=== PATIENT | female | born 1985 | race American Indian/Alaskan Native ===

== ENCOUNTER 2017-08-31 20:05 | Emergency (ER) | payer SELFPAY ==
[2017-08-31 20:48] LABS: Hematocrit 40.8 % (30.3-42.9); Hemoglobin 13.4 gm/dl (10.1-14.3); Mean Corpuscular HGB Conc 33 % (30-34); Mean Corpuscular Hemoglobin 27 pg (28-32); Mean Corpuscular Volume 82 fl (79-97); Platelet Count 349 K/mm3 (140-440); Red Blood Count 4.96 M/mm3 (3.65-5.03)
[2017-08-31 21:23] LABS: Bacteria,Urine 1+ /HPF (Negative); Bilirubin,Urine NEG (Negative); Blood,Urine LG (Negative); Color,Urine Red (Yellow); Mucus,Urine 2+ /HPF
[2017-08-31 21:28] LABS: Basophils % (Manual) 0 % (0.0-1.8); Total Cells Counted 100
[2017-08-31 21:29] LABS: Anisocytosis 1+; Poikilocytosis Few
[2017-08-31 21:32] LABS: RBC,Urine > 182.0 /HPF (0.0-6.0)
--- NOTE | 2017-09-01 01:10 | Ultrasound Report ---
FINAL REPORT PROCEDURE: US OB TECHNIQUE: Real-time transabdominal sonography in multiple planes of the pelvis was performed. The pelvic structures, especially the ovaries were not optimally visualized. Transvaginal sonography was then performed to better evaluate the structures and/or abnormalities described below with image documentation. Limited Doppler evaluation. CPT 55213 and 06324 HISTORY: Vaginal bleeding. COMPARISON: No prior studies are available for comparison. FINDINGS: UTERUS Size: 9.5 x 3.5 x 3.8 cm. Endometrial thickness: 12.1 mm. 12 x 4 x 9 mm cystic structure in the lower uterine segment. Orientation: anteverted. Cervix: Normal. Fibroids/masses: None. RIGHT Ovary: 2.7 x 1.9 x 2.9 cm. Appearance: 1.3 cm solid lesion in the right ovary. Normal flow. LEFT Ovary: 2.3 x 1.6 x 2 cm. Appearance: Normal flow. Pelvic fluid: None. Other: None. IMPRESSION: Endometrium slightly thickened. No sonographic evidence of intrauterine . Cystic structure in the lower uterine segment, of uncertain etiology. Consider nabothian cysts. However, cannot exclude that this could be related to a positive HCG such as missed/threatened AB or developing gestational sac in the low position and/or small amount of hemorrhage/clot, and although right ovarian lesion may represent complex cyst, cannot completely completely exclude this is an ectopic. Recommend clinical correlation, correlation with beta HCG, and short-term followup pelvic ultrasound.
--- NOTE | 2017-09-01 01:21 | Ultrasound Report ---
FINAL REPORT PROCEDURE: US OB TECHNIQUE: Real-time transabdominal sonography in multiple planes of the pelvis was performed. The pelvic structures, especially the ovaries were not optimally visualized. Transvaginal sonography was then performed to better evaluate the structures and/or abnormalities described below with image documentation. Limited Doppler evaluation. CPT 23025 and 53456 HISTORY: Vaginal bleeding. COMPARISON: No prior studies are available for comparison. FINDINGS: UTERUS Size: 9.5 x 3.5 x 3.8 cm. Endometrial thickness: 12.1 mm. 12 x 4 x 9 mm cystic structure in the lower uterine segment. Orientation: anteverted. Cervix: Normal. Fibroids/masses: None. RIGHT Ovary: 2.7 x 1.9 x 2.9 cm. Appearance: 1.3 cm solid lesion in the right ovary. Normal flow. LEFT Ovary: 2.3 x 1.6 x 2 cm. Appearance: Normal flow. Pelvic fluid: None. Other: None. IMPRESSION: Endometrium slightly thickened. No sonographic evidence of intrauterine . Cystic structure in the lower uterine segment, of uncertain etiology. Consider nabothian cysts. However, cannot exclude that this could be related to a positive HCG such as missed/threatened AB or developing gestational sac in the low position and/or small amount of hemorrhage/clot, and although right ovarian lesion may represent complex cyst, cannot completely completely exclude this is an ectopic. Recommend clinical correlation, correlation with beta HCG, and short-term followup pelvic ultrasound.
[2017-09-01] MEDS ORDERED: NORCO 5/325 PO ONE (04:48)
[2017-09-01 06:34] VITALS: BP 119/71
--- NOTE | 2017-09-01 07:10 | Emergency Department Report ---
ED General Adult HPI - General Chief complaint: Vaginal Bleeding Stated complaint: VAGINAL BLEEDING,CRAMPING Time Seen by Provider: 09/01/17 06:18 Source: patient Mode of arrival: Ambulatory Limitations: No Limitations - History of Present Illness Initial comments: This is a 31-year-old female that the nurse states passed a clot while in the emergency department but otherwise feels like she is ready to go home. She states she has been here all night. She's had no active bleeding. She does not complain of any active pain but says she has had some cramping. She did a home test which was positive about a month ago. She has not visited a weapons system instrument mechanic. She is 3 para 2. She states her blood type is O+. She has never received Rh vaccine. -: Gradual, hour(s) Radiation: abdomen (some lower abdominal discomfort) Quality: other (cramping) Consistency: intermittent Improves with: none Worsens with: none Associated Symptoms: denies other symptoms Treatments Prior to Arrival: none - Related Data Previous Rx's Medication Instructions Recorded Last Taken Type Cefuroxime [Ceftin] 250 mg PO Q12H #14 tablet 09/01/17 Unknown Rx HYDROcodone/APAP 5-325 [[place] 1 each PO Q6HR PRN #7 tablet 09/01/17 Unknown Rx 5/325] Allergies Allergy/AdvReac Type Severity Reaction Status Date / Time No Known Allergies Allergy Unverified 08/31/17 20:30 ED Review of Systems ROS: Stated complaint: VAGINAL BLEEDING,CRAMPING Other details as noted in HPI Constitutional: denies: chills, fever Eyes: denies: eye pain, eye discharge, vision change ENT: denies: ear pain, throat pain Respiratory: denies: cough, shortness of breath, wheezing Cardiovascular: denies: chest pain, palpitations Endocrine: no symptoms reported Gastrointestinal: denies: abdominal pain, nausea, diarrhea Genitourinary: as per HPI, abnormal menses. denies: urgency, dysuria, frequency , hematuria, discharge Musculoskeletal: denies: back pain, joint swelling, arthralgia Skin: denies: rash, lesions Neurological: denies: headache, weakness, paresthesias Psychiatric: denies: anxiety, depression Hematological/Lymphatic: denies: easy bleeding, easy bruising ED Past Medical Hx - Past Medical History Previous Medical History?: No - Surgical History Past Surgical History?: Yes Additional Surgical History: c section - Social History Smoking Status: Never Smoker Substance Use Type: None - Medications Home Medications: Home Medications Medication Instructions Recorded Confirmed Last Taken Type Cefuroxime [Ceftin] 250 mg PO Q12H #14 tablet 09/01/17 Unknown Rx HYDROcodone/APAP 5-325 [[place] 1 each PO Q6HR PRN #7 tablet 09/01/17 Unknown Rx 5/325] ED Physical Exam - General Limitations: No Limitations General appearance: alert, in no apparent distress - Head Head exam: Present: atraumatic, normocephalic - Eye Eye exam: Present: normal appearance - ENT ENT exam: Present: mucous membranes moist - Neck Neck exam: Present: normal inspection - Respiratory Respiratory exam: Present: normal lung sounds bilaterally. Absent: respiratory distress - Cardiovascular Cardiovascular Exam: Present: regular rate, normal rhythm. Absent: systolic murmur, diastolic murmur, rubs, gallop - GI/Abdominal GI/Abdominal exam: Present: soft, normal bowel sounds. Absent: distended, tenderness, guarding, rebound, rigid - Extremities Exam Extremities exam: Present: normal inspection - Back Exam Back exam: Present: normal inspection - Neurological Exam Neurological exam: Present: alert, oriented X3, CN II-XII intact. Absent: motor sensory deficit - Psychiatric Psychiatric exam: Present: normal affect, normal mood - Skin Skin exam: Present: warm, dry, intact, normal color. Absent: rash ED Course Vital Signs 08/31/17 09/01/17 09/01/17 20:27 04:21 04:53 Temperature 99.0 F 98.4 F Pulse Rate 81 64 Respiratory 17 16 16 Rate Blood Pressure 130/84 Blood Pressure 145/84 [Left] O2 Sat by Pulse 100 98 Oximetry 09/01/17 09/01/17 05:30 06:33 Temperature 98.5 F Pulse Rate 64 Respiratory 16 16 Rate Blood Pressure Blood Pressure 119/71 [Left] O2 Sat by Pulse 100 Oximetry ED Medical Decision Making - Lab Data Result diagrams: 08/31/17 20:33 Laboratory Results - last 24 hr 08/31/17 08/31/17 08/31/17 20:33 20:33 20:33 WBC 14.5 H RBC 4.96 Hgb 13.4 Hct 40.8 MCV 82 MCH 27 L MCHC 33 RDW 14.0 Plt Count 349 Lymph # Cardiovascular Rn Add Manual Diff Complete Total Counted 100 Seg Neuts % (Manual) 42.0 Band Neutrophils % 0 Lymphocytes % (Manual) 53.0 H Reactive Lymphs % (Man) 0 Monocytes % (Manual) 4.0 Eosinophils % (Manual) 1.0 Basophils % (Manual) 0 Metamyelocytes % 0 Myelocytes % 0 Promyelocytes % 0 Blast Cells % 0 Nucleated RBC % Not Reportable Seg Neutrophils # Man 6.1 Band Neutrophils # 0.0 Lymphocytes # (Manual) 7.7 H Abs React Lymphs (Man) 0.0 Monocytes # (Manual) 0.6 Eosinophils # (Manual) 0.1 Basophils # (Manual) 0.0 Metamyelocytes # 0.0 Myelocytes # 0.0 Promyelocytes # 0.0 Blast Cells # 0.0 WBC Morphology Not Reportable Hypersegmented Neuts Not Reportable Hyposegmented Neuts Not Reportable Hypogranular Neuts Not Reportable Smudge Cells Not Reportable Toxic Granulation Not Reportable Toxic Vacuolation Not Reportable Dohle Bodies Not Reportable Pelger-Huet Anomaly Not Reportable Juapnablo Rods Not Reportable Platelet Estimate Appears normal Clumped Platelets Not Reportable Plt Clumps, EDTA Not Reportable Large Platelets Not Reportable Giant Platelets Not Reportable Platelet Satelliting Not Reportable Plt Morphology Comment Not Reportable RBC Morphology Not Reportable Dimorphic RBCs Not Reportable Polychromasia Not Reportable Hypochromasia Not Reportable Poikilocytosis Few Anisocytosis 1+ Microcytosis Not Reportable Macrocytosis Not Reportable Spherocytes Not Reportable Pappenheimer Bodies Not Reportable Sickle Cells Not Reportable Target Cells Not Reportable Tear Drop Cells Not Reportable Ovalocytes Not Reportable Helmet Cells Not Reportable [place] Bodies Not Reportable [place] Rings Not Reportable [place] Cells Not Reportable Bite Cells Not Reportable Crenated Cell Not Reportable Elliptocytes Not Reportable Acanthocytes (Spur) Not Reportable Rouleaux Not Reportable Hemoglobin C Crystals Not Reportable Schistocytes Not Reportable Malaria parasites Not Reportable Angel Bodies Not Reportable Hem Pathologist Commnt No HCG, Quant 472.4 H Urine Color Urine Turbidity Urine pH Ur Specific [place] Urine Protein Urine Glucose (UA) Urine Ketones Urine Blood Urine Nitrite Urine Bilirubin Urine Urobilinogen Ur Leukocyte Esterase Urine WBC (Auto) Urine RBC (Auto) U Epithel Cells (Auto) Urine Bacteria (Auto) Urine Mucus Blood Type B POSITIVE Antibody Screen Negative 08/31/17 Unknown WBC RBC Hgb Hct MCV MCH MCHC RDW Plt Count Lymph # Add Manual Diff Total Counted Seg Neuts % (Manual) Band Neutrophils % Lymphocytes % (Manual) Reactive Lymphs % (Man) Monocytes % (Manual) Eosinophils % (Manual) Basophils % (Manual) Metamyelocytes % Myelocytes % Promyelocytes % Blast Cells % Nucleated RBC % Seg Neutrophils # Man Band Neutrophils # Lymphocytes # (Manual) Abs React Lymphs (Man) Monocytes # (Manual) Eosinophils # (Manual) Basophils # (Manual) Metamyelocytes # Myelocytes # Promyelocytes # Blast Cells # WBC Morphology Hypersegmented Neuts Hyposegmented Neuts Hypogranular Neuts Smudge Cells Toxic Granulation Toxic Vacuolation Dohle Bodies Pelger-Huet Anomaly Juanpablo Rods Platelet Estimate Clumped Platelets Plt Clumps, EDTA Large Platelets Giant Platelets Platelet Satelliting Plt Morphology Comment RBC Morphology Dimorphic RBCs Polychromasia Hypochromasia Poikilocytosis Anisocytosis Microcytosis Macrocytosis Spherocytes Pappenheimer Bodies Sickle Cells Target Cells Tear Drop Cells Ovalocytes Helmet Cells [place] Bodies Mellott Rings Sandhya Cells Bite Cells Crenated Cell Elliptocytes Acanthocytes (Spur) Rouleaux Hemoglobin C Crystals Schistocytes Malaria parasites Angel Bodies Hem Pathologist Commnt HCG, Quant Urine Color Red Urine Turbidity Clear Urine pH 5.0 Ur Specific [place] 1.028 Urine Protein 100 mg/dl Urine Glucose (UA) Neg Urine Ketones Tr Urine Blood Lg Urine Nitrite Neg Urine Bilirubin Neg Urine Urobilinogen 2.0 Ur Leukocyte Esterase Mod Urine WBC (Auto) 96.0 H Urine RBC (Auto) > 182.0 U Epithel Cells (Auto) 3.0 Urine Bacteria (Auto) 1+ Urine Mucus 2+ Blood Type Antibody Screen - Radiology Data Radiology results: report reviewed (cyst in the lower uterine segment with broad differential diagnosis) Critical care attestation.: If time is entered above; I have spent that time in minutes in the direct care of this critically ill patient, excluding procedure time. ED Disposition Clinical Impression: Threatened miscarriage Urinary tract infection Qualifiers: Urinary tract infection type: site unspecified Hematuria presence: with hematuria Qualified Code(s): N39.0 - Urinary tract infection, site not specified ; R31.9 - Hematuria, unspecified Disposition: DC-01 TO HOME OR SELFCARE Is pt being admited?: No Does the pt Need Aspirin: No Condition: Stable Instructions: Threatened Miscarriage (ED), Urinary Tract Infection in Women (ED ) Additional Instructions: The ultrasound is too early to specifically determine the diagnosis. This frequently happens. Follow-up ultrasound will be necessary with the weapons system instrument mechanic. You do have a urinary tract infection and an antibiotic will be prescribed. In addition there is a urine culture that is used for and determining whether the antibiotics is effective. That takes 2 days to complete. See weapons system instrument mechanic within this timeframe. Rx as directed. Prescriptions: Cefuroxime [Ceftin] 250 mg PO Q12H #14 tablet HYDROcodone/APAP 5-325 [[place] 5/325] 1 each PO Q6HR PRN #7 tablet PRN Reason: Pain Referrals: LINSEY WATTS MD [Staff Physician] - 2-3 Days Time of Disposition: 07:09
== END 2017-09-01 07:50 | disposition home or self-care (01) ==
LOC: ED 20:05
DX: O20.0 Threatened abortion (principal); O23.41 Unspecified infection of urinary tract in pregnancy, first trimester; Z3A.01 Less than 8 weeks gestation of pregnancy
CPT/HCPCS: 36415; 76801; 76817; 81001; 84702; 85007; 85025; 86850; 86900; 86901; 87086; 99284

== ENCOUNTER 2019-01-22 21:35 | Outpatient (CLI) | payer MEDICAID ==
[2019-01-22 22:03] VITALS: BP 106/55
[2019-01-22] MEDS ORDERED: LACTATED RINGERS 500 ML IV ONE (22:32)
[2019-01-22 23:11] LABS: Bilirubin,Urine NEG (Negative); Blood,Urine NEG (Negative); Color,Urine Yellow (Yellow); Mucus,Urine FEW /HPF; Protein,Urine <15 mg/dL mg/dL (Negative); Urobilinogen,Urine < 2.0 mg/dL (<2.0); WBC,Urine < 1.0 /HPF (0.0-6.0)
--- NOTE | 2019-01-22 23:33 | Ultrasound Report ---
ULTRASOUND OBSTETRIC LIMITED ULTRASOUND BIOPHYSICAL PROFILE INDICATION / CLINICAL INFORMATION: POST FALL. COMPARISON: None available. FINDINGS: BREATHING MOVEMENT = 2 GROSS BODY MOVEMENT = 2 TONE = 2 QUALITATIVE AMNIOTIC FLUID VOLUME = 2 TOTAL BIOPHYSICAL SCORE = 8/8 AMNIOTIC FLUID INDEX (cm) = 8.1 PRESENTATION: Cephalic. HEART RATE (beats per minute): 156 ADDITIONAL FINDINGS: None. IMPRESSION: 1. Biophysical Score = 8/8 Signer Name: Garry Amor MD Signed: 01/22/2019 11:29 PM Workstation Name: [id number]
== END 2019-01-22 23:59 | disposition home or self-care (01) ==
LOC: TRG 21:35
PROVIDERS: ATTEND Obstetrics & Gynecology
DX: O47.03 False labor before 37 completed weeks of gestation, third trimester (principal); O26.893 Other specified pregnancy related conditions, third trimester; M54.9 Dorsalgia, unspecified; Z3A.36 36 weeks gestation of pregnancy; W01.0XXA Fall on same level from slipping, tripping and stumbling without subsequent striking against object, initial encounter; Y93.89 Activity, other specified; Y92.89 Other specified places as the place of occurrence of the external cause; Y99.8 Other external cause status
CPT/HCPCS: 59025; 76815; 76819; 81001; J7120

== ENCOUNTER 2019-02-03 18:13 | Inpatient (IN) | payer MEDICAID ==
[2019-02-03] MEDS ORDERED: LACTATED RINGERS 1,000 ML ONE (19:11)
[2019-02-03] MEDS ORDERED: REGLAN IV SCH (19:39)
[2019-02-03] MEDS ORDERED: BICITRA PO SCH (19:39)
[2019-02-03 19:53] LABS: Hematocrit 38.2 % (30.3-42.9); Hemoglobin 12.3 gm/dl (10.1-14.3); Mean Corpuscular HGB Conc 32 % (30-34); Mean Corpuscular Volume 82 fl (79-97); Platelet Count 355 K/mm3 (140-440); Red Blood Count 4.69 M/mm3 (3.65-5.03); Red Cell Distribution Width 14.5 % (13.2-15.2)
[2019-02-03] MEDS ORDERED: ANCEF/STERILE WATER 2 GM/20 ML 2 GM/20 ML SYRINGE IV NR (20:00)
[2019-02-03] MEDS ORDERED: PITOCin/NS 20 UNIT/1000ML DRIP 20 UNITS/1,000 ML BAG IV SCH ×2 (21:00→23:45)
[2019-02-03] MEDS ORDERED: PEPCID IV ONE (21:00)
[2019-02-03] MEDS ORDERED: LACTATED RINGERS 1,000 ML IV SCH (21:00)
[2019-02-03] MEDS ORDERED: PHENERGAN PO PRN (21:09)
[2019-02-03] MEDS ORDERED: NARCAN 0.4 MG/1 ML IV PRN ×2 (21:09→23:14)
[2019-02-03] MEDS ORDERED: ZOFRAN IV PRN ×2 (21:09→23:14)
[2019-02-03] MEDS ORDERED: PHENERGAN PR PRN (21:09)
[2019-02-03] MEDS ORDERED: DILAUDID IV PRN ×2 (21:09)
--- NOTE | 2019-02-03 21:09 | Anesthesia Day of Surgery ---
Anesthesia Day of Surgery - Day of Surgery Patient Examined: Yes Patient H&P Reviewed: Yes Patient is NPO: Yes
--- NOTE | 2019-02-03 21:09 | Anesthesia Consultation ---
Anesthesia Consult and Med Hx Date of service: 02/03/19 - Airway Anesthetic Teeth Evaluation: Good ROM Head & Neck: Adequate Mental/Hyoid Distance: Adequate Mallampati Class: Class II Intubation Access Assessment: Good - Pulmonary Exam CTA: Yes - Cardiac Exam Cardiac Exam: RRR - Pre-Operative Health Status ASA Pre-Surgery Classification: ASA2, Emergency Proposed Anesthetic Plan: Spinal - Pulmonary Hx Asthma: No - Cardiovascular System Hx Hypertension: No - Central Nervous System Hx Seizures: No Hx Psychiatric Problems: No - Endocrine Hx Renal Disease: No Hx Hypothyroidism: No Hx Hyperthyroidism: No - Hematic Hx Anemia: No Hx Sickle Cell Disease: No - Other Systems Hx Alcohol Use: No
--- NOTE | 2019-02-03 21:44 | History and Physical Report ---
History of Present Illness Date of examination: 02/03/19 Date of admission: 02/03/2019 Chief complaint: Term , Previous , having contractions. History of present illness: A2 at 38+1 wks, prior delivery and desiring repeat . Past History Past Medical History: no pertinent history - Obstetrical History : 5 Medications and Allergies Allergies Allergy/AdvReac Type Severity Reaction Status Date / Time No Known Allergies Allergy Verified 01/22/19 22:37 Home Medications Medication Instructions Recorded Confirmed Last Taken Type HYDROcodone/APAP 5-325 [[place] 1 each PO Q6HR PRN #7 tablet 09/01/17 Unknown Rx 5/325] cefUROXime [Ceftin] 250 mg PO Q12H #14 tablet 09/01/17 Unknown Rx Active Meds: Active Medications Citric Acid/Sodium Citrate (Bicitra) 30 ml PO ONCE ALECIA Stop: 02/04/19 19:38 Hydromorphone HCl (Dilaudid) 0.5 mg IV Q5M PRN PRN Reason: Breakthrough Pain Stop: 02/04/19 06:00 Hydromorphone HCl (Dilaudid) 0.5 mg IV Q4H PRN PRN Reason: breakthrough pain > 7/10 Cefazolin Sodium (Ancef/Sterile Water 2 Gm/20 Ml) 2 gm in 20 mls @ 80 mls/hr IV PREOP NR; Protocol Stop: 02/04/19 19:59 Oxytocin/Sodium Chloride (Pitocin/Ns 20 Unit/1000ml Drip) 20 units in 1,000 mls @ 0 mls/hr IV TITR ALECIA Lactated Ringer's (Lactated Ringers) 1,000 mls @ 2,250 mls/hr IV PREOP ALECIA Stop: 02/04/19 21:27 Metoclopramide HCl (Reglan) 10 mg IV ONCE ALECIA Stop: 02/04/19 19:38 Naloxone HCl (Narcan 0.4 Mg/1 Ml) 0.2 mg IV Q2MIN PRN PRN Reason: Res Rate </= 8 or 02 SAT < 92% Ondansetron HCl (Zofran) 4 mg IV Q8H PRN PRN Reason: Nausea And Vomiting Promethazine HCl (Phenergan) 25 mg PO Q6H PRN PRN Reason: Nausea And Vomiting Promethazine HCl (Phenergan) 25 mg TN Q6H PRN PRN Reason: Nausea And Vomiting Sodium Chloride (Sodium Chloride Flush Syringe 10 Ml) 10 ml IV PRN NR Stop: 02/04/19 23:59 Review of Systems All systems: negative - Vital Signs Vital signs: Vital Signs Temp Pulse Resp BP Pulse Ox 98.3 F 72 20 118/71 97 02/03/19 18:35 02/03/19 18:35 02/03/19 18:35 02/03/19 18:35 02/03/19 18:35 Temp Pulse Resp BP Pulse Ox 98.3 F 81 20 118/71 100 02/03/19 18:35 02/03/19 19:41 02/03/19 18:35 02/03/19 18:35 02/03/19 19:41 - Physical Exam Breasts: Positive: deferred Abdomen: Positive: distention. Negative: tenderness - Obstetrical FHR: category 1 Results Result Diagrams: 02/03/19 19:30 Abnormal lab results 02/03/19 Range/Units 19:30 WBC 13.7 H (4.5-11.0) K/mm3 MCH 26 L (28-32) pg All other labs normal. Assessment and Plan - Patient Problems (1) Term Current Visit: Yes Status: Acute (2) Previous delivery, antepartum Current Visit: Yes Status: Acute Plan to address problem: Term , prior in early labor. Desires repeat . Plan: all risks of repeat discussed in details, and patient asked questions which were all answered. She gave her consent for surgery and will be delivered shortly by section.
[2019-02-03 21:48] LABS: Band Neutrophils # (Manual) 0.3 K/mm3; Myelocytes # (Manual) 0.1 K/mm3; Total Cells Counted 100
[2019-02-03 21:49] LABS: Ovalocytes Few; Platelet Estimate Consistent w Auto
[2019-02-03] MEDS ORDERED: SODIUM CHLORIDE FLUSH SYRINGE 10 ML IV NR ×2 (22:00→23:45)
[2019-02-03] MEDS ORDERED: WATER FOR IRRIG STERILE IR ONE (22:09)
[2019-02-03] MEDS ORDERED: NACL 0.9% IR ONE (22:09)
[2019-02-03] MEDS ORDERED: DEXMEDETOMIDINE IV ONE (22:35)
[2019-02-03] MEDS ORDERED: ZOFRAN ONE (22:35)
[2019-02-03] MEDS ORDERED: BENADRYL ONE (22:35)
[2019-02-03] MEDS ORDERED: TORADOL ONE (22:35)
[2019-02-03] MEDS ORDERED: TYLENOL PO PRN (23:14)
[2019-02-03] MEDS ORDERED: LANSINOH TP PRN (23:14)
[2019-02-03] MEDS ORDERED: IBUPROFEN PO PRN (23:14)
[2019-02-03] MEDS ORDERED: TUCKS PAD TP PRN (23:14)
--- NOTE | 2019-02-03 23:22 | Post Anesthesia Evaluation ---
- Post Anesthesia Evaluation Patient Participated: Yes Airway Patent: Yes Stable Respiratory Function: Yes Nausea/Vomiting: Yes Temp > 96.8F: No Pain Manageable: Yes Adequeate Hydration: Yes Anesthesia Complications: No Block Receding Appropriately: Yes Patient on Ventilator: No
--- NOTE | 2019-02-03 23:27 | Operative Report ---
Operative Report Operative Report: Date of surgery: 02/03/2019 Preoperative diagnoses: Term , previous section, early labor Postoperative diagnoses: The same. Plus peritoneal adhesions. Operation: delivery plus lysis of adhesions Surgeon:Jessica Dickson MD Hotel Baggage Handler: Andrea Ta CRNA Anesthesia: Spinal block Estimated blood loss: 300 mL Complications: None Findings: Live baby girl, 5 lbs. 15 oz. Apgars 8/8 was in cephalic presentation. There were moderate peritoneal adhesions involving the greater omentum to the anterior parietal peritoneum. Both ovaries fallopian tubes as well as the uterus were all grossly normal. Procedure in detail: The patient was taken to the operating room and given a spinal block. Patient was placed in the straight supine position and a Bradshaw catheter was inserted. The patient was prepped in the abdomen. The drapes were placed. A timeout was done. With the go ahead from the office engineer, a Pfannenstiel incision was made. This incision was carried across the subcutaneous layer to the fascia which was also divided transversely. The recti abdominis muscle flaps were stripped from the fascia using a combination of blunt and sharp dissections. The muscles were in the midline to gain access to the anterior parietal peritoneum which was divided after excluding any underlying viscera. The access to the peritoneal cavity was then widened by manual stretching. The bladder blade was applied. The utero vesicle peritoneal flap was divided transversely allowing the bladder to be displaced caudally. The uterine incision was placed in the lower segment transversely. The uterine incision was carried to the decidual layer. The uterine incision was extended on both sides using the bandage scissors. The amniotic sac was ruptured with clear fluid. The head was lifted out of the falls maternal pelvis and delivered through the incision using fundal pressure. The airways were bulb suctioned beginning with the mouth. Continuing fundal pressure combined with traction on the mandibular processes of the jaw delivered the rest of the baby. The umbilical cord was double clamped and divided. The baby was carefully transferred to the pediatric team. The placenta was manually removed from the uterine cavity. The uterine cavity was explored and was empty of any placental remnants. The uterine incision was repaired in 2 layers with #1 Vicryl. The surgical line on the uterus was hemostatic. Blood and clots were cleared from the peritoneal cavity. The peritoneal adhesions described under the findings were then divided using a combination of blunt and sharp dissections as well as double clamping and d ividing and adherent segment of the greater omentum bound to the midportion of the anterior parietal peritoneum. A ragged segment of the greater omentum had to be excised to achieve hemostasis. This specimen was sent to histopathology. The anterior parietal peritoneum was repaired with #1 Vicryl. The fascia was repaired with #1 Vicryl. The subcutaneous layer was made hemostatic using the Bovie before the skin was closed subcuticularly with 4-0 Vicryl. There were no complications. The estimated blood loss was 300 mL. All sponges and instrument counts were correct. Patient was safely transferred to the recovery room
[2019-02-04] MEDS: TORADOL IV PRN ×3 (01:58→18:11)
[2019-02-04] MEDS: MORPHINE IV PRN ×3 (03:14→16:10)
[2019-02-04] MEDS: ANCEF/NS 1 GM/50 ML 1 GM/50 ML BAG IV SCH ×2 (03:16→11:31)
[2019-02-04] MEDS ORDERED: D5LR 1,000 ML IV SCH (06:00)
[2019-02-04] MEDS: PRENATAL VITAMIN PO SCH (10:15)
[2019-02-04] MEDS: FEOSOL PO SCH (10:15)
[2019-02-04 11:40] LABS: Hematocrit 31.1 % (30.3-42.9); Hemoglobin 9.9 gm/dl (10.1-14.3)
--- NOTE | 2019-02-04 13:07 | Progress Note ---
Assessment and Plan - Patient Problems (1) Term Current Visit: Yes Status: Acute (2) Previous delivery, antepartum Current Visit: Yes Status: Acute (3) Status post section Current Visit: Yes Status: Acute Plan to address problem: Doing well on present mgt. Subjective - Subjective Interval history: A2 at 38+1 wks, prior delivery and desiring repeat . Status post Day 1. Objective - Vital Signs Latest vital signs: Vital Signs Temp Pulse Resp BP BP Pulse Ox 02/04/19 09:16 97.8 F 84 18 109/50 99 02/04/19 03:14 16 02/04/19 00:52 98.0 F 74 16 128/78 128/78 100 02/04/19 00:25 98.1 F 81 20 109/63 99 02/04/19 00:15 75 20 116/68 99 02/04/19 00:00 78 18 118/69 99 02/03/19 23:45 81 18 117/69 99 02/03/19 23:30 90 14 118/68 99 02/03/19 23:25 95 H 19 104/68 100 02/03/19 23:22 97.5 F L 103 H 16 86/68 100 02/03/19 19:41 81 100 02/03/19 19:36 82 100 02/03/19 19:31 76 99 02/03/19 19:26 80 99 02/03/19 19:21 82 98 02/03/19 19:16 80 98 02/03/19 19:11 80 98 02/03/19 19:06 79 98 02/03/19 19:01 73 96 02/03/19 18:56 78 96 02/03/19 18:35 98.3 F 72 20 118/71 97 Intake and Output 02/03/19 02/04/19 02/04/19 23:59 07:59 15:59 Intake Total 1999 50 480 Output Total 200 2300 Balance 1800 50 -1820 Intake: IV 1999 50 ANCEF/NS 1 GM/50 ML 1 gm 50 In 50 ml @ 100 mls/hr IV Q8H [facility] Rx#:[id number] Oral 480 Output: Urine 200 2300 Indwelling Catheter 2300 Uretheral (Bradshaw) 100 Other: Total, Intake Amount 240 Total, Output Amount 600 Weight 73.936 kg Estimated Blood Loss 300 - Exam Narrative Exam: Ambulating very nicely. Breasts: Present: deferred Abdomen: Present: normal appearance (Incision dry.) - Labs Labs: Abnormal lab results 02/03/19 02/04/19 Range/Units 19:30 10:54 WBC 13.7 H (4.5-11.0) K/mm3 Hgb 9.9 L (10.1-14.3) gm/dl MCH 26 L (28-32) pg Monocytes % (Manual) 10.0 H (0.0-7.3) % Seg Neutrophils # Man 8.5 H (1.8-7.7) K/mm3 Monocytes # (Manual) 1.4 H (0.0-0.8) K/mm3
[2019-02-04] MEDS: NORCO 5/325 PO PRN (21:59)
[2019-02-05] MEDS: NORCO 5/325 PO PRN ×3 (06:21→23:07)
[2019-02-05] MEDS: FEOSOL PO SCH (12:02)
[2019-02-05] MEDS: PRENATAL VITAMIN PO SCH (12:02)
[2019-02-05] MEDS ORDERED: TRIPLE ANTIBIOTIC TP ONE (14:33)
--- NOTE | 2019-02-05 15:52 | Progress Note ---
Assessment and Plan - Patient Problems (1) Term Current Visit: Yes Status: Acute (2) Previous delivery, antepartum Current Visit: Yes Status: Acute (3) Status post section Current Visit: Yes Status: Acute Plan to address problem: Doing well on current management plan. Wants to go home tomorrow. Subjective - Subjective Date of service: 02/05/19 Interval history: A2 at 38+1 wks, prior delivery and desiring repeat . Status post Day 2. Had no complaints. Objective - Vital Signs Latest vital signs: Vital Signs Temp Pulse Resp BP BP Pulse Ox 02/05/19 14:35 20 02/05/19 09:00 98.1 F 71 18 108/64 02/05/19 08:07 98.1 F 18 108/64 02/05/19 00:54 98.2 F 73 18 102/61 02/04/19 16:30 98.6 F 82 18 118/69 97 Intake and Output 02/04/19 02/05/19 02/05/19 23:59 07:59 15:59 Intake Total 600 480 Output Total 600 Balance 0 480 Intake: Oral 240 Intake, Free Water 360 480 Output: Urine 600 Void 600 Other: Total, Intake Amount 240 Total, Output Amount 200 # Voids Indwelling Catheter 1 Void 2 1 - Exam Breasts: Present: deferred Abdomen: Present: normal appearance, normal bowel sounds. Absent: tenderness Incision: Present: normal, intact
[2019-02-05] MEDS ORDERED: TRIPLE ANTIBIOTIC TP SCH (20:00)
[2019-02-06] MEDS: NORCO 5/325 PO PRN ×2 (05:46→13:10)
[2019-02-06] MEDS: FEOSOL PO SCH (13:10)
[2019-02-06] MEDS: PRENATAL VITAMIN PO SCH (13:10)
--- NOTE | 2019-02-06 16:35 | Discharge Summary ---
Providers - Providers Date of Admission: 02/03/19 22:00 Date of discharge: 02/06/19 Attending physician: CONSUELO HERNANDEZ Primary care physician: CONSUELO HERNANDEZ Hospitalization Reason for admission: active labor Procedure: section, repeat low transverse Episiotomy: none Laceration: none Incision: normal, dry, intact Other procedures: none complications: none Condition at discharge: Good Disposition: DC-01 TO HOME OR SELFCARE - Discharge Diagnoses (1) Term Status: Acute (2) Previous delivery, antepartum Status: Acute (3) Status post section Status: Acute Plan - Discharge Medications Prescriptions: HYDROcodone/APAP 5-325 [[place] 5/325] 1 - 2 each PO Q4HR PRN #30 tablet PRN Reason: Pain - Provider Discharge Summary Activity: routine, no sex for 6 weeks, no strenuous exercise Diet: routine Instructions: routine Additional instructions: [] Smoking cessation referral if applicable(refer to patient education folder for contact #) [] Refer to [facility] Book[facility] Call your doctor immediately for: * Fever > 100.5 * Heavy vaginal bleeding ( >1 pad per hour) * Severe persistent headache * Shortness of breath * Reddened, hot, painful area to leg or breast * Drainage or odor from incision. * Keep incision clean and dry at all times and follow doctor's instructions regarding bathing/showering - Follow up plan Follow up: CONSUELO HERNANDEZ MD [Primary Care Provider] - 7 Days
[2019-02-06 18:55] VITALS: BP 134/75
== END 2019-02-06 17:30 | disposition home or self-care (01) | DRG 766 ==
LOC: TRG 18:13 → APU 20:56 → TRG 22:00 → APU 22:00 → OB 02-04 01:06
PROVIDERS: ADMIT Obstetrics & Gynecology; ATTEND Obstetrics & Gynecology
PROC: 10D00Z1 Extraction of Products of Conception, Low, Open Approach (ICD-10-PCS; principal; 2019-02-03)
PROC: 0DBU0ZZ Excision of Omentum, Open Approach (ICD-10-PCS; 2019-02-03)
DX: O34.211 Maternal care for low transverse scar from previous cesarean delivery (principal); O99.62 Diseases of the digestive system complicating childbirth; K66.0 Peritoneal adhesions (postprocedural) (postinfection); Z3A.38 38 weeks gestation of pregnancy; Z37.0 Single live birth
CPT/HCPCS: 36415; 85007; 85014; 85018; 85025; 86592; 86850; 86900; 86901; 88305; G0378; A6250; J0690; J1200; J1885; J2270; J2405; J2590; J2765; J3490; J7120; J7121